=== PATIENT | female | born 1965 | race Two or more races ===

== ENCOUNTER 2017-07-14 14:19 | Emergency (ER) | payer SELFPAY ==
[~2017-07-14] VITALS: Ht 160 cm; Wt 60.0 kg
[2017-07-14] MEDS ORDERED: ACETAMINOPHEN WITH CODEINE 300/30MG TABLET PO STA (17:18)
[2017-07-14] MEDS ORDERED: CYCLOBENZAPRINE 10MG TABLET PO ONE (17:30)
[2017-07-14 19:49] VITALS: BP 108/75
== END 2017-07-14 19:53 | disposition home or self-care (01) ==
LOC: ER 14:31
DX: S20.211A Contusion of right front wall of thorax, initial encounter (principal); M62.838 Other muscle spasm; V89.2XXA Person injured in unspecified motor-vehicle accident, traffic, initial encounter; Y93.89 Activity, other specified; Y92.89 Other specified places as the place of occurrence of the external cause; Y99.8 Other external cause status
CPT/HCPCS: 71045; 81025; 93005; 99284; Z7610